=== PATIENT | male | born 1965 | race Two or more races ===

== ENCOUNTER 2022-04-20 17:34 | Emergency (ER) | payer OTHER ==
[~2022-04-20] VITALS: Ht 170.2 cm; Wt 71.7 kg
[2022-04-20] MEDS ORDERED: ATIVAN2 M1 (19:01)
[2022-04-20] MEDS ORDERED: BUSPIRONE 10 MG (19:02)
== END 2022-04-20 22:00 | disposition home or self-care (01) ==
LOC: ER 17:34
DX: F41.1 Generalized anxiety disorder (principal); F41.0 Panic disorder [episodic paroxysmal anxiety]; R10.13 Epigastric pain